=== PATIENT | male | born 1980 | race Caucasian/White ===

== ENCOUNTER 2022-09-12 10:04 | Outpatient (REF) | payer OTHER, SELFPAY ==
[2022-09-12 11:29] LABS: Appearance Urine Clear; Color Urine Dark Yellow; Glucose Urine UA Negative (Negative); Leukocyte Esterase Urine Negative (Negative); Nitrite Urine Negative (Negative); PH 5.5 (5.0-9.0); Specific Gravity - Urine >= 1.030 (1.005-1.025); Urine Blood Negative (Negative); Urine Ketones Trace mg/dL (Negative); Urine Protein Negative (Neg-Trace)
[2022-09-12 12:16] LABS: Alanine Aminotransferase 35 U/L (0-40); Albumin Level 4.4 g/dL (3.5-5.0); Alkaline Phosphatase 58 U/L (39-117); Anion Gap 12 (12-20); Aspartate Amino Transferase 21 U/L (5-37); Bilirubin Total 0.6 mg/dL (0.0-1.0); Blood Urea Nitrogen 25 mg/dL (9-16); Calcium 9.4 mg/dL (8.4-10.2); Carbon Dioxide 27 mmol/L (22-29); Chloride 111 mmol/L (96-108); Cholesterol 172 mg/dL; Estimated Glomerular Filt Rate > 60; Glucose Fasting 91 mg/dL (60-99); HDL Cholesterol 41 mg/dL; LDL Cholesterol Calculated 116 mg/dl; Potassium 4.2 mmol/L (3.3-5.1); Sodium 146 mmol/L (135-145); Total Protein 6.9 g/dL (6.5-8.0); Triglycerides 77 mg/dL
[2022-09-12 12:20] LABS: Creatinine Urine 392.76 mg/dL
[2022-09-12 12:26] LABS: TSH reflex Free T4 1.34 uIU/mL (0.32-4.0)
[2022-09-12 12:29] LABS: Prostate Specific Antigen Scr 1.25 ng/mL (<0.05-4.0)
== END 2022-09-12 10:05 | disposition home or self-care (01) ==
LOC: HO.HMGCLDS 10:04
PROVIDERS: PCP Family Medicine; Visit Provider Family Medicine
DX: Z00.00 Encounter for general adult medical examination without abnormal findings (principal); Z12.5 Encounter for screening for malignant neoplasm of prostate; I10 Essential (primary) hypertension
CPT/HCPCS: 36415; 80053; 80061; 81003; 82043; 84153; 84443

== ENCOUNTER 2022-10-13 10:06 | Outpatient (AMB) | payer OTHER, SELFPAY ==
--- NOTE | 2022-10-13 10:06 | A.OFFPC_ITS ---
Intake Visit Reasons: f/u CPE-labs Intake Note: f/u for labs from CPE Continuous [employer] Supervisor Required: No Allergies No Known Allergies Allergy (Verified 10/13/22 10:07) Tobacco use date assessed: 09/05/22 Dental Screening Dental Screen Date: 10/13/22 Did you have a dental visit in the last 12 months?: Yes Did you have a dental problem in the last 6 months where you did not have access to dental care?: No Was dental information given to patient?: Patient has dentist HPI f/u CPE-labs HPI Details 42 y/o male presents to f/u CPE-labs via telemedicine. Labs were drawn 09/12/22. Reviewed labs with pt. Mildly elevated sodium and BUN. He did not drink any water when he was fasting. Rest of his labs look fine. 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 Cognitive needs: No Hearing needs: No Vision needs: Yes Questionnaire Thrive Questionnaire I am a: Patient What is your living situation today?: I have a steady place to live Within the past 12 months, did the food you bought not last and you didn't have the money to get more?: Never true Within the past 12 months, did you worry whether your food would run out before you got money to buy more?: Never true Review of Systems Const Denies chills, Denies fatigue, Denies fever(s), Denies headache(s) and Denies weakness ENT Denies dizziness and Denies headache(s) Card Denies dyspnea Resp Denies cough, Denies dyspnea, Denies wheezing and Denies other (shortness of breath) Musc Denies numbness and Denies tingling Neuro Denies dizziness, Denies headache(s), Denies numbness, Denies tingling and Denies weakness Psych Denies anxiety and Denies depression Endo Denies fatigue Aller/Immun Denies wheezing Physical exam (Primary Care) Tobacco/Smoking Status: Tobacco use Status Tobacco use date assessed 09/05/22 10/13/22 10:08 Patient Tobacco Use Status Never used Tobacco 10/13/22 10:08 e-Cigarette/Vaping Use Never Used 10/13/22 10:08 Telehealth Telehealth Location of provider rendering services: practice address Location of patient: address on file Patient Identification confirmed using: Name, : Yes Telehealth method: voice only Patient verbally consented to treatment: Yes Patient verbally consented to billing insurance company: Yes Patient informed of any privacy concerns related to visit: Yes Minutes spent on Phone/Video with Pt.: 6 Assessment and Plan Assessment & Plan (1) Screening for prostate cancer: Code(s): Z12.5 - Encounter for screening for malignant neoplasm of prostate Plan: PSA was within normal limits Patient has no urinary stream problems and no dysuria. No gross hematuria and no microscopic hematuria on urine studies Will continue to monitor (2) Serum sodium elevated: Code(s): E87.0 - Hyperosmolality and hypernatremia Plan: Mildly elevated sodium level and concentrated urine. Patient did not drink any water during his fast for lab work. Likely mild dehydration due to not drinking water during his fast. Orders: Orders Comprehensive [place]. Panel Fast 11 Months Z00.00 - Encounter for general adult medical examination without abnormal findings Lipid Panel 11 Months Z00.00 - Encounter for general adult medical examination without abnormal findings Prostate Specific Antigen Scr 11 Months Z12.5 - Encounter for screening for mal ignant neoplasm of prostate TSH reflex Free T4 11 Months Z00.00 - Encounter for general adult medical examination without abnormal findings Microalbumin, Random (w Creat) 11 Months I10 - Essential (primary) hypertension UA and rflx microscopic 11 Months Z00.00 - Encounter for general adult medical examination without abnormal findings Coding Level of Care Code Tele Est Pt Level 2 (67096) Diagnoses Screening for prostate cancer Z12.5 Serum sodium elevated E87.0
== END 2022-10-13 10:55 | disposition home or self-care (01) ==
LOC: HO.HMGFM 10:06
PROVIDERS: PCP Family Medicine; Visit Provider Family Medicine
DX: E87.0 Hyperosmolality and hypernatremia (principal); Z12.5 Encounter for screening for malignant neoplasm of prostate
CPT/HCPCS: 99212

== ENCOUNTER 2023-09-08 13:31 | Outpatient (AMB) | payer OTHER, SELFPAY ==
--- NOTE | 2023-09-08 13:38 | A.OFFPC_ITS ---
Vital Signs 09/08/23 13:42 Height 5 ft 9 in Weight 238 lb 4 oz BMI 35.2 BP 122/80 Blood Pressure Location Rt brachial Position Sitting Pulse 59 Pulse Source Pulse Oximeter Temp 98.1 F Temp Source Oral Pulse Oximetry (%) 98 Oxygen Delivery Method Room Air Intake Visit Reasons: Sharp pain in heel Intake Note: Sharp pain in left heel. Allergies No Known Allergies Allergy (Verified 09/08/23 13:40) Medication List - Last Reconciled 09/08/23 by Pratibha Serrano MD diclofenac sodium 1% (Voltaren Arthritis Pain) 4 grams topical QID prednisone 40 mg (2 x 20 mg) PO DAILY Tobacco use date assessed: 09/05/22 Dental Screening Dental Screen Date: 10/13/22 HPI HPI Comments History of Present Illness Details 43 year old male with a past medical his tory of plantar fasciitis presenting for right heel pain Reports a 1-2 month history of right heel pain. Location is under calcaneus. Originally thought he was developing plantar fasciitis again. Bought inserts and new shoes. Pain subsided in mid foot but persisted in the heel. No redness or warmth. Increase pain with weight bearing. Hurts in the morning too when he has been off his feet for some time. No injury. History of right plantar fasciitis in 2013-saw podiatry at that time. Called that critical care physician but no appt til Nov. He is using naproxen with minimal relief. Has used icy hot. But not lasting relief ROS see HPI PHYSICAL EXAM: GENERAL: Alert and oriented x 3. NAD EYES: EOMI. Anicteric. HENT: Moist mucous membranes. No scleral icterus. No cervical lymphadenopathy. LUNGS: Clear to auscultation bilaterally. CARDIOVASCULAR: Regular rate and rhythm. No murmur. No JVD. ABDOMEN: Soft, non-tender +bs EXTREMITIES: No edema. Non-tender. SKIN: No rashes or lesions. Warm. NEUROLOGIC: No focal neurological deficits. CN II-XII grossly intact PSYCHIATRIC: Cooperative. 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 Cognitive needs: No Hearing needs: No Vision needs: Yes Physical exam (Primary Care) Vital Signs: Last Vital Signs Temp 98.1 F 09/08/23 13:42 Pulse 59 09/08/23 13:42 BP 122/80 09/08/23 13:42 Pulse Ox 98 09/08/23 13:42 Oxygen Delivery Method Room Air 09/08/23 13:42 BMI result Body Mass Index 35.2 Tobacco/Smoking Status: Tobacco use Status Tobacco use date assessed 09/05/22 09/08/23 13:40 Patient Tobacco Use Status Never used Tobacco 09/08/23 13:40 e-Cigarette/Vaping Use Never Used 09/08/23 13:40 Assessment and Plan Assessment & Plan (1) Pain of right heel: Code(s): M79.671 - Pain in right foot Plan: Discussed possibility of calcaneal spur, arthritis etc. Will obtain xray Prednisone x 5 days ordered. May use tylenol plus either advil/ibuprofen/naproxen Recommend application of voltaren as directed Referral to podiatry placed Orders: Orders XR foot RT 2V Today M79.671 - Pain in right foot Referrals Orthopedics Referral M79.671 - Pain in right foot Medications: New diclofenac sodium 1% (Voltaren Arthritis Pain) apply to single knee, ankle, foot; for foot includes sole/toes/top of foot 4 grams topical QID 100 grams 3RF prednisone 40 mg (2 x 20 mg) PO DAILY 10 tabs 0RF Coding Level of Care Code Est Pt Level 4 (25712) Diagnoses Pain of right heel M79.671
[2023-09-08 13:42] VITALS: BP 122/80; PULSE 59; TEMP 36.7; O2SAT 98; BMI 35.2
== END 2023-09-08 15:17 | disposition home or self-care (01) ==
PROVIDERS: PCP Family Medicine; Visit Provider Internal Medicine
DX: M79.671 Pain in right foot (principal)
CPT/HCPCS: 99214

== ENCOUNTER 2023-09-12 08:03 | Outpatient (REF) | payer OTHER, SELFPAY | END 2023-09-12 08:04 | disposition home or self-care (01) | LOC: HO.XRAY 08:03 | PROVIDERS: PCP Family Medicine; Visit Provider Internal Medicine | DX: Z13.89 Encounter for screening for other disorder (principal) ==

== ENCOUNTER 2023-09-14 09:01 | Outpatient (REF) | payer OTHER, SELFPAY ==
--- NOTE | ~2023-09-14 | XR_ITS ---
EXAMINATION: XR FOOT, LEFT CLINICAL INFORMATION: Pain in the left foot COMPARISON: None available. TECHNIQUE: AP, lateral, and oblique views of the left foot. FINDINGS: The bones and soft tissues are normal. No fracture. Alignment is anatomic. Joint spaces are maintained. Plantar enthesophyte. XR/XR foot LT min 3V IMPRESSION: Plantar enthesophyte.
--- NOTE | ~2023-09-14 | XR_ITS ---
EXAMINATION: XR FOOT, RIGHT CLINICAL INFORMATION: Pain in the right foot COMPARISON: None available. TECHNIQUE: AP, lateral, and oblique views of the right foot. FINDINGS: The bones and soft tissues are normal. No fracture. Alignment is anatomic. Joint spaces are maintained. Calcaneal enthesopathy. XR/XR foot RT min 3V IMPRESSION: Calcaneal enthesopathy.
== END 2023-09-14 09:02 | disposition home or self-care (01) ==
LOC: HO.XRAY 09:01
PROVIDERS: PCP Family Medicine; Visit Provider Internal Medicine
DX: M79.671 Pain in right foot (principal); M79.672 Pain in left foot
CPT/HCPCS: 73630

== ENCOUNTER 2023-10-23 08:53 | Outpatient (AMB) | payer BC, SELFPAY ==
--- NOTE | 2023-10-23 09:16 | MHC.PC.OV ---
Vital Signs 10/23/23 09:27 10/23/23 09:32 Height 5 ft 8.27 in Weight 242 lb 8 oz BMI 36.6 BP 110/90 H 106/60 Blood Pressure Location Rt brachial Rt brachial Position Sitting Sitting Respiration 18 Pulse 64 Pulse Source Pulse Oximeter Temp 98 F Temp Source Tympanic Pulse Oximetry (%) 98 Oxygen Delivery Method Room Air Intake Visit Reasons: CPE Intake Note: CPE ,left heal pain Allergies No Known Allergies Allergy (Verified 10/23/23 09:21) Medication List - Last Reconciled 10/23/23 by Teo Gallardo MD diclofenac sodium 1% (Voltaren Arthritis Pain) 4 grams topical QID Tobacco use date assessed: 10/23/23 Dental Screening Dental Screen Date: 10/23/23 Did you have a dental visit in the last 12 months?: No Did you have a dental problem in the last 6 months where you did not have access to dental care?: No Was dental information given to patient?: Patient declined HPI CPE HPI Details 43 y/o male presents for a CPE with f/u labs and health maintenance. No recent labs to review. Has complaints of L heel pain. Hx of plantar fasciitis. HPI Comments History of Present Illness Details Documentation assistance for Teo Gallardo MD, was provided by Wellington Cunningham, Health [employer] Teacher on 10/23/2023 at 10:20 AM SACHA. Laith, Dr. Gallardo, have read, observed, and verified documentation. 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 1. Little interest or pleasure in doing things: not at all 2. Feeling down, depressed, or hopeless: not at all 3. Trouble falling or staying asleep, or sleeping too much: not at all 4. Feeling tired or having little energy: not at all 5. Poor appetite or overeating: not at all 6. Feeling bad about yourself - or that you are a failure or have let yourself or your family down: not at all 7. Trouble concentrating on things, such as reading the newspaper or watching television: not at all 8. Moving or speaking so slowly that other people could have noticed. Or the opposite - being so fidgety or restless that you have been moving around a lot more than usual: not at all 9. Thoughts that you would be better off or of hurting yourself in some way: not at all Total score: 0 Depression Screening Interpretation: Negative Depression Screening Done: Yes 33425 - PHQ-9 Billing: Yes Source: Developed by Drs. Thaddeus Pool, Berkley Quinn, Asael Leal and colleagues, with an educational wellington from [employer]. Thrive Questionnaire Date Thrive assessed: 10/23/23 I am a: Patient What is your living situation today?: I have a steady place to live Within the past 12 months, did the food you bought not last and you didn't have the money to get more?: Never true Within the past 12 months, did you worry whether your food would run out before you got money to buy more?: Never true Do you have trouble paying for medicines?: No Do you have trouble getting transportation to medical appointments?: No Do you have trouble paying your heating and electricity bill?: No Do you have trouble taking care of your child, family member or friend?: No Do you have trouble with day-to-day activities such as bathing, preparing meals, shopping, managing finances, etc.?: No Are you currently unemployed and looking for a job?: No Are you interested in more education?: No Please select the resources that you would like help with: None Currently or been in a relationship where the following occur: No concerns reported THRIVE Score: 0 AUDIT C Alcohol Use Questionnaire (AUDIT-C) 1. How often do you have a drink containing alcohol?: 2-4 times a month 2. How many drinks containing alcohol do you have on a typical day when you are drinking?: 1 or 2 3. How often do you have six or more drinks on one occasion?: Never Total Score: 2 Score Reviewed/Action Taken: Yes MACK-7 AMB Questionnaire MACK-7 Date MACK - 7 assessed: 10/23/23 Feeling nervous, anxious, or on edge: 0 = Not at all Not being able to stop or control worryin = Not at all Worrying too much about different things: 0 = Not at all Trouble relaxin = Not at all Being so restless that it is hard to sit still: 0 = Not at all Becoming easily annoyed or irritable: 0 = Not at all Feeling afraid as if something awful might happen: 0 = Not at all Total MACK-7 score (0-4 normal; 5-9 mild; 10-14 moderate; 15-21 severe): 0 Source: Developed by Drs. Thaddeus Pool, Berkley Quinn, Asael Leal and colleagues, with an educational wellington from [employer]. MACK-7 Assessment Billing MACK-7 Assessment Tool: MACK-7 Assessment 67167 Review of Systems Const Denies chills, Denies fatigue, Denies fever(s), Denies headache(s) and Denies weakness Eyes Denies change in vision ENT Denies dizziness, Denies headache(s), Denies hearing loss, Denies nasal congestion, Denies sinus pain, Denies sinus pressure and Denies sore throat Card Denies chest pain, Denies lightheadedness, Denies dyspnea and Denies other (palpitations) Resp Denies cough, Denies dyspnea and Denies wheezing GI Denies abdominal pain, Denies melena, Denies hematochezia, Denies change in bowel habits, Denies dyspepsia and Denies nausea Denies hematuria and Denies dysuria Musc Denies abnormal gait, Denies myalgias, Denies arthralgias, Denies numbness and Denies tingling Skin/Breast Denies rash, Denies unusual bruising and Denies wounds Neuro Denies abnormal gait, Denies dizziness, Denies headache(s), Denies memory loss, Denies numbness, Denies Sensory deficit (Neuro), Denies tingling and Denies weakness Psych Denies anxiety, Denies depression and Denies memory loss Endo Denies cold intolerance, Denies fatigue, Denies heat intolerance, Denies polydipsia and Denies polyuria Cecil/Lymph Denies easy bleeding and Denies easy bruising Aller/Immun Denies wheezing Physical exam (Primary Care) Vital Signs: Last Vital Signs Temp 98 F 10/23/23 09:27 Pulse 64 10/23/23 09:27 Resp 18 10/23/23 09:27 BP 106/60 10/23/23 09:32 Pulse Ox 98 10/23/23 09:27 Oxygen Delivery Method Room Air 10/23/23 09:27 BMI result Body Mass Index 36.6 Tobacco/Smoking Status: Tobacco use Status Tobacco use date assessed 10/23/23 10/23/23 09:22 Patient Tobacco Use Status Never used Tobacco 10/23/23 09:22 e-Cigarette/Vaping Use Never Used 10/23/23 09:22 PHQ-9: PHQ-9 Score PHQ-9: Total score 0 10/23/23 09:47 Depression Screening Interpretation: Negative Thrive Assessment: Date of Thrive Assessment Date Thrive assessed 10/23/23 10/23/23 09:30 Currently or been in a relationship where the following occur: No concerns reported Const General: no acute distress, well developed, alert and awake Nutritional Appearance: well nourished Orientation/consciousness: patient oriented x3 HENMT Head: Yes normocephalic and Yes atraumatic Ears: hearing grossly normal bilaterally and TM's normal bilaterally General nose exam: Normal external nose present and Normal nares present Mouth: Normal oral and palatal mucosa present and moist mucous membranes Teeth and gingiva: dentition normal Throat: Yes posterior oropharynx normal Eyes General: appearance normal, both eyes and all related structures Pupils: Equal, round and reactive pupils present and Pupil accommodation reflex normal EOM: EOMs intact bilaterally Neck Neck: Yes normal visual inspection, Yes no lymphadenopathy and Yes trachea midline Thyroid: Thyroid normal Carotids: no bruits Lymphatic: no lymphadenopathy noted Chest Chest palpation & inspection: normal inspection of the chest Resp Effort & Inspection: normal respiratory effort Auscultation: clear to auscultation bilaterally Cardio Rate: regular rate Rhythm: regular rhythm Heart sounds: S1 normal heart sound present, S2 normal heart sound present, no gallops, no murmurs and no rubs Bruits: no abdominal aortic bruits and no carotid bruits GI Palpation (GI): No Abdominal aortic bruit present, Soft to palpation, nontender, No hepatosplenomegaly present and No Rebound tenderness present Auscultation: normal bowel sounds General: Yes no CVA tenderness Back/Spine/Pelvis Back: no CVA tenderness Cervical Spine: cervical ROM normal and No Cervical spine tenderness Thoracic/Lumbar Spine: thoraco-lumbar ROM normal, No pain with thoraco-lumbar ROM, No thoracic spinal tenderness and No lumbar spinal tenderness Skin Lesions: no lesions Rashes: no rashes Trauma: no lacerations or abrasions Wounds: no wounds Nails: normal Neuro General: patient oriented x3 Cranial nerves: Yes Equal, round and reactive pupils present Cognition (Neuro): normal cognition Gait exam (Neuro): Normal gait present Motor exam (neuro): 5/5 motor strength present throughout Sensory Exam: No Sensory deficit (Neuro) Deep tendon reflexes (DTR's): Right patellar reflex intensity grade: 2+ and Left patellar reflex intensity grade: 2+ Extrem General: Yes normal to inspection and No edema Psych Appearance: grossly normal Affect: normal affect Attitude: cooperative Thought process: Normal thought process present Assessment and Plan Assessment & Plan (1) Adult general medical examination: Code(s): Z00.00 - Encounter for general adult medical examination without abnormal findings Plan: 43-year-old?male?presents?for?complete?physical?exam Encouraged?healthy?diet?with?active?lifestyle?and?plenty?of?exercise (2) Screening for prostate cancer: Code(s): Z12.5 - Encounter for screening for malignant neoplasm of prostate Plan: Check?PSA (3) Screening for colon cancer: Code(s): Z12.11 - Encounter for screening for malignant neoplasm of colon Plan: Due?for?1st?screening?colonoscopy Referred (4) Pain of left heel: Code(s): M79.672 - Pain in left foot Plan: No?stress?fractures?seen?on?x-ray.??Just?encephalopathy and?likely?has plantar?tendinitis/fasciitis. Demonstrated?stretching?exercises Will?also?use?ice/heat Will?give?him?meloxicam Can?use?heel?cup?or?heel?cushion Has?appointment?with?Podiatry?and?will?follow-up?there Orders: Referrals Gastroenterology Referral Z12.11 - Encounter for screening for malignant neoplasm of colon Medications: New meloxicam 15 mg PO DAILY 30 days 30 tabs 2RF Coding Level of Care Code Est Pt Level 3 (68140) Est Pt Prev Care 40-64y(83031) Diagnoses Adult general medical examination Z00.00 Screening for prostate cancer Z12.5 Screening for colon cancer Z12.11 Pain of left heel M79.672 Additional Codes MACK-7 Assessment Billing - MACK-7 Assessment Tool: MACK-7 Assessment 33981 ([id number])
[2023-10-23 09:27] VITALS: BP 110/90; PULSE 64; RESP 18; TEMP 36.6; O2SAT 98; BMI 36.6
[2023-10-23 09:32] VITALS: BP 106/60
== END 2023-10-23 10:23 | disposition home or self-care (01) ==
PROVIDERS: PCP Family Medicine; Visit Provider Family Medicine
DX: Z00.00 Encounter for general adult medical examination without abnormal findings (principal); M79.672 Pain in left foot; Z12.5 Encounter for screening for malignant neoplasm of prostate; Z12.11 Encounter for screening for malignant neoplasm of colon
CPT/HCPCS: 99213; 99396

== ENCOUNTER 2023-10-23 10:47 | Outpatient (REF) | payer BC, SELFPAY ==
[2023-10-23 14:17] LABS: Appearance Urine Clear; Color Urine Yellow; Glucose Urine UA Negative (Negative); Leukocyte Esterase Urine Negative (Negative); Nitrite Urine Negative (Negative); PH 6.5 (5.0-9.0); Specific Gravity - Urine 1.015 (1.005-1.025); Urine Blood Negative (Negative); Urine Ketones Negative (Negative); Urine Protein Negative (Neg-Trace)
[2023-10-23 14:39] LABS: Alanine Aminotransferase 32 U/L (0-40); Albumin Level 4.3 g/dL (3.5-5.0); Alkaline Phosphatase 60 U/L (39-117); Anion Gap 11 (12-20); Aspartate Amino Transferase 20 U/L (5-37); Bilirubin Total 0.5 mg/dL (0.0-1.0); Blood Urea Nitrogen 22 mg/dL (9-16); Calcium 9.5 mg/dL (8.4-10.2); Carbon Dioxide 28 mmol/L (22-29); Chloride 105 mmol/L (96-108); Cholesterol 192 mg/dL (<200); Estimated Glomerular Filt Rate > 60; Glucose Fasting 85 mg/dL (60-99); HDL Cholesterol 43 mg/dL (>40); LDL Cholesterol Calculated 128 mg/dL (<100); Potassium 4.4 mmol/L (3.3-5.1); Sodium 140 mmol/L (135-145); Total Protein 6.8 g/dL (6.5-8.0); Triglycerides 105 mg/dL (<150)
[2023-10-23 14:50] LABS: Microalbumin Urine < 5.0 mg/L
[2023-10-23 14:51] LABS: Prostate Specific Antigen Scr 1.37 ng/mL (<0.05-4.0)
[2023-10-23 14:53] LABS: TSH reflex Free T4 1.57 uIU/mL (0.32-4.0)
== END 2023-10-23 10:48 | disposition home or self-care (01) ==
LOC: HO.WFDLDS 10:47
PROVIDERS: Visit Provider Family Medicine
DX: Z00.00 Encounter for general adult medical examination without abnormal findings (principal); Z12.5 Encounter for screening for malignant neoplasm of prostate; I10 Essential (primary) hypertension
CPT/HCPCS: 36415; 80053; 80061; 81003; 82570; 84153; 84443

== ENCOUNTER 2023-11-30 15:28 | Outpatient (AMB) | payer BC, SELFPAY ==
--- NOTE | 2023-11-30 15:25 | A.OFFPC_ITS ---
Intake Visit Reasons: f/u CPE-labs via telemedicine Intake Note: Lab work follow up Allergies No Known Allergies Allergy (Verified 11/30/23 15:26) Tobacco use date assessed: 10/23/23 Dental Screening Dental Screen Date: 10/23/23 HPI f/u CPE-labs via telemedicine HPI Details 43 y/o male presents to review CPE-labs via telemedicine. Labs drawn 10/23/23. Reviewed labs with pt. Triglycerides 105. TC 192. LDL 128. HDL 43. PSA 1.37. HPI Comments History of Present Illness Details Documentation assistance for Teo Gallardo MD, was provided by Wellington Cunningham, Reinforced Ironworker on 11/30/2023 at 5:45 PM EST. I, Dr. Gallardo, have read, observed, and verified documentation. 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 Thaddeus Pool, Berkley Quinn, Asael Leal and colleagues, with an educational wellington from [employer]. Review of Systems Const Denies chills, Denies fatigue, Denies fever(s), Denies headache(s) and Denies weakness ENT Denies dizziness and Denies headache(s) Card Denies dyspnea Resp Denies cough, Denies dyspnea, Denies wheezing and Denies other (shortness of breath) Musc Denies numbness and Denies tingling Neuro Denies dizziness, Denies headache(s), Denies numbness, Denies tingling and Denies weakness Psych Denies anxiety and Denies depression Endo Denies fatigue Aller/Immun Denies wheezing Physical exam (Primary Care) Tobacco/Smoking Status: Tobacco use Status Tobacco use date assessed 10/23/23 11/30/23 15:28 Patient Tobacco Use Status Never used Tobacco 11/30/23 15:28 e-Cigarette/Vaping Use Never Used 11/30/23 15:28 Thrive Assessment: Date of Thrive Assessment Date Thrive assessed 10/23/23 11/30/23 15:28 Telehealth Telehealth Telehealth Platform: Telephone Location of provider rendering services: practice address Location of patient: address on file Patient Identification confirmed using: Name, : Yes Telehealth method: voice only Patient verbally consented to treatment: Yes Patient verbally consented to billing insurance company: Yes Patient informed of any privacy concerns related to visit: Yes Minutes spent on Phone/Video with Pt.: 8 Assessment and Plan Assessment & Plan (1) Elevated LDL cholesterol level: Code(s): E78.00 - Pure hypercholesterolemia, unspecified Plan: LDL?cholesterol?is?above?goal?of?less?than?100.??Mild?increase?from?last?year?as ?well. Patient?is?obese Encouraged?diet?low?in?saturated?fats?and?cholesterol,?exercise?and?weight?loss Will?repeat?lipids?in?about?4?months We?discussed?that?if?lipids?continue?to?climb?or?not?significantly?improved?we?m ay?want?to?discuss?medication?but?if?he?is?showing?improvements?we?will?continue ?to?monitor. (2) Screening for prostate cancer: Code(s): Z12.5 - Encounter for screening for malignant neoplasm of prostate Plan: PSA?is?within?normal?range Continue?annual?screening (3) Screening for colon cancer: Code(s): Z12.11 - Encounter for screening for malignant neoplasm of colon Plan: Patient?has?appointment?with?Gastroenterology (4) Pain of right heel: Code(s): M79.671 - Pain in right foot Plan: Plantar?fasciitis?and?patient?saw?Podiatry Continue?exercises?and?follow-up?with?podiatry?as?recommended Orders: Orders Lipid Panel Today E78.00 - Pure hypercholesterolemia, unspecified, Z00.00 - Encounter for general adult medical examination without abnormal findings Comprehensive [place]. Panel Fast Today E78.00 - Pure hypercholesterolemia, unspecified, Z00.00 - Encounter for general adult medical examination without abnormal findings Coding Level of Care Code Tele Est Pt Level 2 (11667) Diagnoses Elevated LDL cholesterol level E78.00 Screening for prostate cancer Z12.5 Screening for colon cancer Z12.11 Pain of right heel M79.671
== END 2023-11-30 17:05 ==
LOC: HO.HMGFM 15:28
PROVIDERS: PCP Family Medicine; Visit Provider Family Medicine
DX: E78.00 Pure hypercholesterolemia, unspecified (principal); M79.671 Pain in right foot
CPT/HCPCS: 99441

== ENCOUNTER 2024-03-08 13:19 | Outpatient (AMB) | payer BC, SELFPAY ==
--- OUTSIDE RECORDS SUMMARY | 2024-03-08 13:21 | XMS_ITS ---
Author Organization [facility] Address [address] [place] [address] Care Team Providers Care Resistance Welder Name Role Phone Teo Gallardo MD Primary Care Provider Eulogio Hussein Unavailable [phone] REASON FOR VISIT cx 01/09/24 Encounters Encounter Location Date Provider Diagnosis [facility] [address] [place] [address] 12/26/2023 Eulogio Ross Plan Of Treatment No Information Progress Notes * Parmjit KIRK MDOB:1980 (43 yo M)Acc No.[id number]:12/26/2023 Patient:?Parmjit Kirk :1980???Age:43 Y???Sex:Male Address:[address] [place] [address] , [place], [address] * true * Date:? Generated for Jimii simona/Roman/eTransmitting on:?03/08/2024 01:21 PM EST
--- OUTSIDE RECORDS SUMMARY | 2024-03-08 13:21 | XMS_ITS ---
Author Organization [facility] Address [address] [place] [address] Care Team Providers Care Commercial Drone Pilot Name Role Phone Paulina WALDEN, Teo Primary Care Provider Eulogio Hussein Unavailable [phone] Encounters Encounter Location Date Provider Diagnosis [address] [address] 01/09/2024 Eulogio Ross Plan Of Treatment No Information Progress Notes * Parmjit KIRKPATRICK MDOB:1980 (43 yo M)Acc No.[id number]:01/09/2024 Progress Notes Patient:?Klaus KIRKPATRICKrey Rosy Provider:?Eulogio Rsos DPM :1980???Age:43 Y???Sex:Male Nsaeem e:01/09/2024 Address:[address] [place], [place] [phone] Pcp:Teo Gallardo MD Subjective: * Chief Complaints: * ??? * Medical History:? Objective: * Vitals:? Assessment: Plan: * Treatment: * Images: * The named appointment provid er may or may not be the originator of this progress note, and it is not deemed complete until electronically signed by the appointment provider. Sign off status: Pending * Provider:?Eulogio Ross DPM Date:?2023 Generated for Printi ng/Farenettag/eTransmitting on:?03/08/2024 01:21 PM EST
--- OUTSIDE RECORDS SUMMARY | 2024-03-08 13:21 | XMS_ITS | Patient Health Record ---
[facility] [place] Address [address] [place] [address] Care Team Providers Care Master Machinist Name Role Phone Teo Gallardo MD Primary Care Provider Eulogio Hussein Unavailable [phone] Allergies No Known Allergies Reason For Referral Diagnosis 1 Plantar fascial fibr omatosis (M72.2) Diagnosis 2 Myositis (729.1) Diagnosis 3 Bursitis (727.3) Diagnosis 4 Pain in Limb (729.5) Diagnosis 5 Calcaneal spur (726. 73) Diagnosis 6 Flat Foot, Congenita l (754.61) Referring Provider First Name Teo Referring Provider Last Name Paulina Referring Provider Speciality Internal M edicine [facility] Referred Provider Enrique Frausto Referred Address [address] [facility],[place], [place],[address], Referred Provider Specialty Podiatry Referral Priority Routine Diagnosis 1 Interstitial myositi s of left foot (M60.172) Diagnosis 2 Bursitis (727.3) Diagnosis 3 Flat Foot, Congenita l (754.61) Diagnosis 4 Myositis (729.1) Diagnosis 5 Pain in Limb (729.5) Diagnosis 6 Plantar fascial fibr omatosis (M72.2) Diagnosis 7 Calcaneal spur (726. 73) Diagnosis 8 Pain in left foot (M 79.672) Referring Provider First Name Teo Referring Provider Last Name Paulina Referring Provider Speciality Internal edicine [facility] Referred Provider Eulogio Ross Referred Address [address] [facility],[place],[address], Referred Provider Specialty Podiatry Referral Priority Routine Medications Medication SIG (Take, Route, Frequency, Duration) Notes Start Date End Date Status Diclofenac Sodium 1 % as directed Externally Active predniSONE 20 MG 1 tablet Orally Once a day for 30 day(s) 10/13/2023 Not-Taking Arthritis Pain Relief 10/13/2023 Active Social History Tobacco Use: Social History Observation Description Date Details (start date - stop date) Never Smoker NA - NA Tobacco Use/Smoking Question Answer Notes Are you a: nonsmoker Additional Findings: Tobacco Non-User Current no n-smoker Alcohol Screen Question Answer Notes Did you have a drink containing alcohol in the p ast year? Yes Points 0 Interpretation Negative Tobacco use other than smoking: Question Answer Notes Are you an other tobacco user? No Problems Problem Type SNOMED Code ICD Code Onset Dates Problem Status W/U Status Risk Notes Problem Interstitial myositis (29673793) Interstitial myositis of left foot (M60.172) Active confirmed Vital Signs Height 5 ft 9 in in 11/28/2023 Weight 240 lbs 11/28/2023 BMI 35.44 kg/m2 11/28/2023 Encounters Encounter Location Date Provider Diagnosis [facility] [address] 11/28/2023 Eulogio Cody Pain in left foot M79.672 ; Plantar fasciitis of left foot M72.2 ; Calcaneal spur, left foot M77.32 ; Interstitial myositis of left foot M60.172 and Bursitis of left foot M77.[address] [facility] [address] 11/28/2023 Eulogio Ross [facility] [address] 12/26/2023 Eulogio Ross Assessments Encounter Date Diagnosis (ICD Code) Assessment Notes Treatment Notes Treatment Clinical Notes Section Notes 11/28/2023 Pain in left foot (ICD-10 - M79.672) 11/28/2023 Plantar fasciitis of left foot (ICD-10 - M72.2) Patient Educated with: HEEL CORD STRETCHES.pdf (HEEL CORD STRETCHES.pdf) Patient Educated with: RICE THERAPY.pdf (RICE THERAPY.pdf) 11/28/2023 Calcaneal spur, left foot (ICD-10 - M77.32) 11/28/2023 Interstitial myositis of left foot (ICD-10 - M60.172) 11/28/2023 Bursitis of left foot (ICD-10 - M77.52) Plan Of Treatment Pending Test Test Name Order Date X ray : Foot, left 3V 11/28/2023 X ray : Foot, right 3V 02/27/2013 Insurance Providers Payer Name Payer Address Payer Phone Subscriber Number Group Number Insured Name Patient Relationship to Insured Coverage Start Date Coverage End Date [facility] [address] [place] [address] [id number] Parmjit Kirk Self - patient is the insured Medical (General) History Medical History History ICD Code covid-19 Chicken pox Surgical History Surgery Date(Month/Year)
--- OUTSIDE RECORDS SUMMARY | 2024-03-08 13:21 | XMS_ITS ---
Author Organization [facility] Address [address] [place] [address] Care Team Providers Care Waxer Operator Name Role Phone Teo Gallardo MD Primary Care Provider Eulogio Hussein Unavailable [phone] REASON FOR VISIT BUY Comfort Plus w/ met pad E- M 12-27.5 Encounters Encounter Location Date Provider Diagnosis [address] [address] 11/28/2023 Eulogio Ross Plan Of Treatment No Information Progress Notes * Parmjit KIRKPATRICK MDOB:1980 (43 yo M)Acc No.[id number]:11/28/2023 Patient:?Parmjit Kirkpatrick :1980???Age:43 Y???Sex:Male Address:[address] [place] [address] , [place], [address] * true * Date:? Generated for Jimii simona/Roman/eTransmitting on:?03/08/2024 01:21 PM EST
--- NOTE | 2024-03-08 13:23 | MHC.OFFVIS ---
Vital Signs 03/08/24 13:26 Height 5 ft 9 in Weight 253 lb 8.505 oz BMI 37.4 BP 134/71 Blood Pressure Location Lt brachial Position Sitting Pulse 68 Intake Visit Reasons: [place] consult. Intake Note: Patient in office today as a new patient for colonoscopy screening. CC: Patient denies having any GI symptoms or concerns today. Ware Carrier Required: No Accompanied by: Self / Same As Patient Allergies No Known Allergies Allergy (Verified 03/08/24 13:30) HPI HPI [place] consult.: Details: 43-year-old male here for preprocedural meeting to discuss a screening colonoscopy. He is referred by Teo Gallardo. PMX High cholesterol * SURGICAL HISTORY Pt denies * ALLERGIES: NKDA * BATS LABS: Laboratory Tests 10/23/23 10:48 Estimated GFR > 60 Total Bilirubin 0.5 AST 20 ALT 32 Alkaline Phosphatase 60 TSH 1.57 TODAY'S VISIT This is his first colonoscopy. No bowel or upper GI problems He denies any cardiac or respiratory problems He is naive to anesthesia and sedation NO ID problems There is no FHX of crc or polyps. [facility] Medical History (Updated 03/08/24 @ 13:36 by CARRIE Nelson) Adult general medical examination Screening for prostate cancer Screening for colon cancer Back pain Social History Household Members: None Both parents involved: No Caregiver staying overnight: No Housing: Condominium Are you a primary client care coordinator to a significant other at home: No Do you presently have visiting nurse or other home services: No 75 years or older and lives alone: No Alcohol intake: current Alcohol intake frequency: holidays/special occasions only Patient Tobacco Use Status: Never used Tobacco e-Cigarette/Vaping Use: Never Used service: No Current occupational status: employed 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 Cognitive needs: No Hearing needs: No Vision needs: Yes Review of Systems Const Denies fatigue, Denies fever(s), Denies night sweats, Denies poor appetite and Denies weight loss Eyes Details: glasses Reports requires corrective lenses ENT Reports Normal hearing present, Denies dental pain, Denies dysphagia, Denies hearing loss, Denies mouth pain, Denies odynophagia, Denies throat swelling, Denies tongue swelling and Reports other (Dentition adequate) Card Reports no additional complaints Resp Reports no additional complaints GI Details: Denies abdominal pain, Denies melena, Denies bloating, Denies hematochezia, Denies constipation, Denies GI cramping, Denies dysphagia, Denies excessive flatus, Denies early satiety, Denies heartburn, Denies diarrhea, Denies nausea, Denies odynophagia, Denies vomiting and Denies hematemesis Skin/Breast Denies pruritus, Denies lesions, Denies rash and Denies jaundice Neuro Reports Normal hearing present and Denies Abnormal speech present Endo Denies fatigue Aller/Immun Denies throat swelling and Denies tongue swelling Physical Exam Vital Signs: Last Vital Signs Pulse 68 03/08/24 13:26 BP 134/71 03/08/24 13:26 BMI result Body Mass Index 37.4 Const General: cooperative, no acute distress, well developed and well groomed Nutritional Appearance: well nourished and obese Orientation/consciousness: oriented to person, oriented to place and oriented to time Limitations: No language barrier HEENT Head: Yes normocephalic and Yes atraumatic Eyes General: appearance normal, both eyes and all related structures Pupils: Equal, round and reactive pupils present Neck Neck: Yes normal visual inspection and Yes no lymphadenopathy Thyroid: Thyroid normal Resp Effort & Inspection: normal respiratory effort and able to speak in complete sentences Auscultation: clear to auscultation bilaterally Cardio Rate: regular rate Rhythm: regular rhythm Heart sounds: Normal, physiologic split S2 sound present Peripheral pulses: radial pulses present and posterior tibial pulses present GI Inspection: No distended, No Abdominal panniculus present and Yes obesity Palpation (GI): Soft to palpation, nontender, no guarding, not rigid and No hepatosplenomegaly present Percussion: Yes normal to percussion Auscultation: normal bowel sounds Rectal Exam - Male: Yes deferred Skin General skin exam: no rashes or lesions noted, turgor normal, skin not dry, no jaundice, No spider nevi and no striae Rashes: no rashes Nails: normal Neuro General: oriented to person, oriented to place and oriented to time Cranial nerves: Yes Equal, round and reactive pupils present and Yes Normal hearing present Speech: No Abnormal speech present Extrem General: Yes normal to inspection, No clubbing, No cyanosis and No edema Psych Appearance: grossly normal and well kempt Mental Status: mental status grossly normal Speech and movement: Normal speech and movement present Affect: normal affect Attitude: cooperative Thought process: Normal thought process present and not confabulating Thought content: Normal thought content present Insight: Good insight present (Psych) Judgement: Good judgement present (Psych) Assessment & Plan Assessment & Plan (1) Pre-op examination: Code(s): Z01.818 - Encounter for other preprocedural examination Category: Medical Plan This is his first colonoscopy. No bowel or upper GI problems He denies any cardiac or respiratory problems He is naive to anesthesia and sedation NO ID problems There is no FHX of crc or polyps. Orders: Orders Colonoscopy - GI Use Only Today Z01.818 - Encounter for other preprocedural examination Medications: New sod sulf-pot chloride-mag sulf 1.479-0.188- 0.225 gram (Sutab) PO PER PKG DIR for colonoscopy prep 24 tabs 0RF Coding Level of Care Code New Pt Level 3 (00839) Diagnoses Pre-op examination Z01.818
[2024-03-08 13:26] VITALS: BP 134/71; PULSE 68; BMI 37.4
== END 2024-03-08 13:45 | disposition home or self-care (01) ==
PROVIDERS: PCP Family Medicine; Visit Provider Nurse Practitioner
DX: Z01.818 Encounter for other preprocedural examination (principal); Z12.11 Encounter for screening for malignant neoplasm of colon
CPT/HCPCS: S0285

== ENCOUNTER → 2024-03-08 13:19 | Outpatient (BNVA) | payer BC, SELFPAY | PROVIDERS: PCP Family Medicine; Visit Provider Nurse Practitioner ==

== ENCOUNTER 2024-10-26 07:05 | Outpatient (REF) | payer BC, SELFPAY ==
--- OUTSIDE RECORDS SUMMARY | 2024-01-09 09:00 | XMS_ITS ---
Author Organization [facility] Address [address] [place] [address] Care Team Providers Care Polish Compounder Name Role Phone Paulina WALDEN, Teo Primary Care Provider Eulogio Hussein Unavailable [phone] Encounters Encounter Location Date Provider Diagnosis [address] [address] 01/09/2024 Eulogio Ross Plan Of Treatment No Information Progress Notes * Parmjit KIRKPATRICK MDOB:1980 (44 yo M)Acc No.[id number]:01/09/2024 Progress Notes Patient: Parmjit GARCIA Provider: Mauro Ross DPM :1980 A ge:43 Y S ex:Male Date:01/09/2024 Address:[address] [place], [place] [phone] Pcp:Teo Gallardo MD Subjective: * Chief Complaints: [...] 1 Generated for Printi ng/Faxing/eTransmitting on: 0 10/26/2024 07:08 AM EDT
--- OUTSIDE RECORDS SUMMARY | 2024-10-26 07:08 | XMS_ITS | Clinical Summary ---
Author Organization [facility] Address [address] [place] [phone] Phone Care Team Providers Care Product Management Specialist Name Role Phone Unavailable Primary Care Provider Unavailabl e Allergies No known active allergies Medications No known medications Active Problems Problem Noted Date Diagnosed Date Class 1 obesity due to exces s calories without serious comorbidity with body mass index (BMI) of 33.0 to 33.9 in adult 08/05/2021 Elevated glucose level 08/05/2021 Encounter for routine adult health examination with abnormal findings 05/09/2019 Assessment & Plan (06/17/2021 9:05 PM EDT): Labs: negative DM and cholesterol screen in 2020. Immunizations: declines flu shot. Counseling provided. utd on covid-19 vaccines. tdap given today Colonoscopy: not indicated until age 45 Plan to follow up annually for CPE and as needed Assessment & Plan (05/15/2020 3:55 PM EST): Labs: repeat CMP to check ALT. HIV and Hep C screen ordered Immunizations: tetanus utd. Next due 2021. Flu shot declined. He plans to get covid-19 vaccination once eligible Colonoscopy: not indicated until age 45 Plan to follow up annually for CPE and as needed Assessment & Plan (05/09/2019 1:39 PM EST): Up to date on health maintenance. Labs: lipids/a1c/cbc/cmp ordered Immunizations: tetanus utd. Next due 2021. Flu shot given today in office Colonoscopy: not indicated Plan to follow up annually for CPE and as needed Immunizations Immunization Administration Dates Next Due INFLUENZA, SPLIT VIRUS, TRIVALENT W/ PRESERVATIV E IM 01/23/2012 Influenza Recombinant Petra valent Preservative Free IM 05/09/2019 Tdap 06/16/2021,01/23/2012 Family History Relation Status Comments Daughter Alive Father Alive Mother Alive Paternal Grandfather Sister Alive Social History Tobacco Use Types Packs/Day Years Used Date Smoking Tobacco: Never Smokeless Tobacco: Never Alcohol Use Standard Drinks/Week Comments Not Currently 0 (1 standard drink = 0.6 oz pur e alcohol) Child or Family Care Answer Date Record ed Do you have problems with on e of the following making it difficult for you to work, study, or receive health care? No 06/13/2021 Education Answer Date Recorded Are you interested in more education? Not on selene e 07/04/2023 Are you concerned about learning? Not on file 07/04/2023 No 07/04/2023 No 07/04/2023 Food Answer Date Recorded Within the past 6 months we worried whether our food would run out before we got money to buy more. Never True 06/13/2021 Within the past 6 months the food we bought just didn't last and we didn't have enough money to get more. Never True Residential Stability Answer Date Recor ded What is your housing situation today? I have delmis sing 06/13/2021 How many times have you move d in the past 12 months? Zero (I did not move) 06/13/2021 06 Are you worried that in t he next 2 months, you may not have your own housing to live in? No 06/13/2021 Paying for Meds Answer Date Recorded Do you have trouble paying for medicines? No 06/13/2021 Paying Utility Bills Answer Date Record ed Do you have trouble paying your heating or elect ricity bill? No 06/13/2021 Transportation Answer Date Recorded Has the lack of transportati on kept you from medical appointments or from getting medications? No 06/13/2021 Unemployment Answer Date Recorded Are you currently unemployed or working on a part-time or temporary basis, and looking for work? No 06/13/2021 Digital Access Answer Date Recorded No 08/12/2022 No 08/12/2022 No 08/12/2022 Reliable internet access at home? Not on file 08/12/2022 Device with a working camera? 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 Not on file Not on file Last Filed Vital Signs Vital Sign Reading Time Taken Comments Blood Pressure 102/66 07/15/2021 2:55 PM EDT Pulse 62 07/15/2021 2:55 PM EDT Temperature 36.9 C (98.4 F) 07/15/2021 2:55 PM EDT Respiratory Rate 16 07/09/2014 2:15 AM EDT Oxygen Saturation 98% 07/15/2021 2:55 PM EDT Inhaled Oxygen Concentration - - Weight 100 kg (220 lb 6.4 oz) 07/15/2021 2:55 PM EDT Height 173.5 cm (5' 8.31 ) 07/15/2021 2:55 PM ED T Body Mass Index 33.21 07/15/2021 2:55 PM EDT Plan of Treatment Health Maintenance Due Date Last Done Comments DEPRESSION SCREENING 07/14/2022 07/14/2021 COLOGUARD 08/08/2023 COLONOSCOPY 08/08/2023 COLORECTAL CANCER SCREENING 08/08/2023 FIT TEST 08/08/2023 FOBT 08/08/2023 SIGMOIDOSCOPY 08/08/2023 VIRTUAL COLONOSCOPY 08/08/2023 COVID-19 VACCINE (2023-2 5 season) 2023 01/09/2021, 07/04/2020, 06/11/2020 LIPID PANEL 05/10/2024 05/10/2019, 05/10/2019 Adult Td,Tdap Booster 06/17/2031 06/16/2021 , 01/23/2012 HEPATITIS C SCREENING Completed 05/15/2020 , 05/15/2020 HIV ONE-TIME SCREENING (18-6 5 YEARS) Completed 05/15/2020 SMOKING STATUS SCREENING (On ce After 26 Yrs) Completed 07/15/2021 HEPATITIS A VACCINES Aged Out No long er eligible based on patient's age to complete this topic HIB VACCINES Aged Out No longer eligi ble based on patient's age to complete this topic MENINGOCOCCAL VACCINES (ACWY) Aged Out No longer eligible based on patient's age to complete this topic MENINGOCOCCAL VACCINES (B) Aged Out N o longer eligible based on patient's age to complete this topic PNEUMOCOCCAL VACCINES (0-49 years) Aged Out No longer eligible b ased on patient's age to complete this topic Medical Devices Not on file Procedures Procedure Name Priority Date/Time Associated Diagnosis Comments HEPATITIS C ANTIBODY, QUALITATIVE Routine 05/15/2020 3:58 PM EST Encounter for routine adult health examination without abnormal findings LIPID PANEL Routine 05/10/2019 11:26 AM EST Annual physical exam from Last 3 Months or Most Recently Relevant to Health Maintenance Results * Hepatitis C antibody, qualitative (05/15/2020 3:58 PM EST) HCV NON-REACTIV E NON-REACTI VE [facility] Blood 05/15/2020 3:58 PM EST 05/15/2020 4:03 PM EST Twila COHEN LAB BLOOD ORDERABLES Final Result Performing Organization Address City/State/[facility] Co de Phone Number [address] [address] * (ABNORMAL) Lipid panel (05/10/2019 11:26 AM EST) HDL 52 mg/dL [facility] Comment: Interpretation <40 mg/dL: Low HDL cholesterol (major risk factor for CHD) Greater than or equal to 60 mg/dL: High HDL cholesterol ( negative risk factor for CHD) HDL - cholesterol is affected by a number of factors, e.g. smoking, excerise, hormones, sex and age. CHOLESTEROL 172 0 - 240 mg/dL [facility] TRIGLYCERIDES 83 30 - 160 mg/dL [facility] LDL 103 50 - 129 mg/dL [facility] Comment: LDL levels in terms of risk for coronary heart disease: <100 mg/dL: Optimal 100-129 mg/dL: Near or above optimal 130-159 mg/dL: Borderline high 160-189 mg/dL: High >190 mg/dL: Very High CARDIAC RISK RATIO 3.3(L) 3.4 - 5.0 C [facility] Blood 05/10/2019 11:2 6 AM EST 05/10/2019 11:28 AM EST us Twila COHEN LAB BLOOD ORDERABLES Final Result [facility] [address] [place] [address] from Last 3 Months or Most Recently Relevant to Health Maintenance [facility] HMO POS Member Subscriber Plan / Payer (Ef fective 2018-Present) Name:Parmjit Kirk Relation to Subscriber:Self Name:Parmjit Kirk Payer ID:[id number] (NAIC) Type:HMO Address: [address] [place] [id number] [place], [place] [id number] [address] [address] HMO POS [facility] HMO POS [facility] HMO POS [place] HMO POS Advance Directives For more information, please contact: [phone] (9AM - 5PM [facility], Monday-Monday) Documents on File Type Date Recorded Patient Patrol Sergeant Sheriff'S Office Expl anation MOLST 06/16/2021 MOLST Completed 05/20/21 Additional Source Comments The information contained in this document represents components of the legal health record. It is not the complete legal health record.[facility]
[2024-10-26 12:45] LABS: Alanine Aminotransferase 64 U/L (0-40); Albumin Level 4.5 g/dL (3.5-5.0); Alkaline Phosphatase 81 U/L (39-117); Anion Gap 13 (12-20); Aspartate Amino Transferase 36 U/L (5-37); Blood Urea Nitrogen 21 mg/dL (9-16); Calcium 8.9 mg/dL (8.4-10.2); Carbon Dioxide 25 mmol/L (22-29); Chloride 105 mmol/L (96-108); Cholesterol 178 mg/dL (<200); Estimated Glomerular Filt Rate > 60; HDL Cholesterol 45 mg/dL (>40); Potassium 4.0 mmol/L (3.3-5.1); Sodium 139 mmol/L (135-145); Total Protein 7.0 g/dL (6.5-8.0); Triglycerides 91 mg/dL (<150)
== END 2024-10-26 07:06 | disposition home or self-care (01) ==
LOC: HO.HMGCLDS 07:05
PROVIDERS: PCP Family Medicine; Visit Provider Family Medicine
DX: Z00.00 Encounter for general adult medical examination without abnormal findings (principal); E78.00 Pure hypercholesterolemia, unspecified
CPT/HCPCS: 36415; 80053; 80061

== ENCOUNTER 2024-10-28 09:02 | Outpatient (AMB) | payer BC, SELFPAY ==
--- OUTSIDE RECORDS SUMMARY | 2024-01-09 09:00 | XMS_ITS ---
Author Organization [facility] Address [address] [place] [address] Care Team Providers Care Chef Manager Name Role Phone Paulina WALDEN, Teo Primary Care Provider Eulogio Hussein Unavailable [phone] Encounters Encounter Location Date Provider Diagnosis [address] [address] 01/09/2024 Eulogio Ross Plan Of Treatment No Information Progress Notes * Parmjit KIRKPATRICK MDOB:1980 (44 yo M)Acc No.[id number]:01/09/2024 Progress Notes Patient: Parmjit GARCIA Provider: Mauro Ross DPM :1980 A ge:43 Y S ex:Male Date:01/09/2024 Address:[address] [place], [place] [phone] Pcp:Teo Gallardo MD Subjective: * Chief Complaints: [...] 1 Generated for Printi ng/Faxing/eTransmitting on: 0 10/28/2024 09:30 AM EDT
--- NOTE | 2024-10-28 09:04 | A.OFFPC_ITS ---
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 Required: No Allergies No Known Allergies Allergy (Verified 10/28/24 09:05) Medication List - Last Reconciled 10/28/24 by Teo Gallardo MD sod sulf-pot chloride-mag sulf 1.479-0.188- 0.225 gram (Sutab) PO PER PKG DIR for colonoscopy prep Tobacco use date assessed: 10/28/24 Dental Screening Dental Screen Date: 10/28/24 Did you have a dental visit in the last 12 months?: Yes Did you have a dental problem in the last 6 months where you did not have access to dental care?: No Was dental information given to patient?: Patient has dentist HPI PE Annual HPI Details 44 y/o male presents for a CPE with f/u labs and health maint. Labs drawn 10/26/24. Reviewed labs with pt. Triglycerides 91. TC 178. LDL 115. HDL 45. Elevated fasting glucose of 107. HPI Comments History of Present Illness Details Documentation assistance for Teo Gallardo MD, was provided by Wellington Cunningham,? Professor Criminal Justice on 10/28/2024 at 9:20 AM SACHA. I, Dr. Gallardo, have read, observed, and verified documentation. ?? [facility] Medical History (Updated 10/28/24 @ 09:38 by Wellington Cunningham) Screening for colon cancer Screening for prostate cancer Adult general medical examination Back pain Social History Household Members: None Both parents involved: No Caregiver staying overnight: No Housing: Condominium Are you a primary women's health care nurse practitioner to a significant other at home: No Do you presently have visiting nurse or other home services: No 75 years or older and lives alone: No Alcohol intake: current Alcohol intake frequency: holidays/special occasions only Patient Tobacco Use Status: Never used Tobacco e-Cigarette/Vaping Use: Never Used service: No Current occupational status: employed 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 1. Little interest or pleasure in doing things: not at all 2. Feeling down, depressed, or hopeless: not at all 3. Trouble falling or staying asleep, or sleeping too much: not at all 4. Feeling tired or having little energy: not at all 5. Poor appetite or overeating: not at all 6. Feeling bad about yourself - or that you are a failure or have let yourself or your family down: not at all 7. Trouble concentrating on things, such as reading the newspaper or watching television: not at all 8. Moving or speaking so slowly that other people could have noticed. Or the opposite - being so fidgety or restless that you have been moving around a lot more than usual: not at all 9. Thoughts that you would be better off or of hurting yourself in some way: not at all Total score: 0 Depression Screening Interpretation: Negative Depression Screening Done: Yes 43197 - PHQ-9 Billing: Yes Source: Developed by Drs. Thaddeus Pool, Berkley Quinn, Asael Leal and colleagues, with an educational wellington from [employer]. Thrive Questionnaire Date Thrive assessed: 10/28/24 I am a: Patient What is your living situation today?: I have a steady place to live Within the past 12 months, did the food you bought not last and you didn't have the money to get more?: Never true Within the past 12 months, did you worry whether your food would run out before you got money to buy more?: Never true Do you have trouble paying for medicines?: No Do you have trouble getting transportation to medical appointments?: No Do you have trouble paying your heating and electricity bill?: No Do you have trouble taking care of your child, family member or friend?: No Do you have trouble with day-to-day activities such as bathing, preparing meals, shopping, managing finances, etc.?: No Are you currently unemployed and looking for a job?: No Are you interested in more education?: No Please select the resources that you would like help with: None Currently or been in a relationship where the following occur: No concerns reported THRIVE Score: 0 AUDIT C Alcohol Use Questionnaire (AUDIT-C) 1. How often do you have a drink containing alcohol?: 2-4 times a month 2. How many drinks containing alcohol do you have on a typical day when you are drinking?: 1 or 2 3. How often do you have six or more drinks on one occasion?: Never Total Score: 2 MACK-7 AMB Questionnaire MACK-7 Date MACK - 7 assessed: 10/28/24 Feeling nervous, anxious, or on edge: 0 = Not at all Not being able to stop or control worryin = Not at all Worrying too much about different things: 0 = Not at all Trouble relaxin = Not at all Being so restless that it is hard to sit still: 0 = Not at all Becoming easily annoyed or irritable: 0 = Not at all Feeling afraid as if something awful might happen: 0 = Not at all Total MACK-7 score (0-4 normal; 5-9 mild; 10-14 moderate; 15-21 severe): 0 Source: Developed by Drs. Thaddeus Pool, Berkley Quinn, Asael Leal and colleagues, with an educational wellington from [employer]. MACK-7 Assessment Billing MACK-7 Assessment Tool: MACK-7 Assessment 97566 Review of Systems Const Denies chills, Denies fatigue, Denies fever(s), Denies headache(s) and Denies weakness Eyes Denies change in vision ENT Denies dizziness, Denies headache(s), Denies hearing loss, Denies nasal congestion, Denies sinus pain, Denies sinus pressure and Denies sore throat Card Denies chest pain, Denies lightheadedness, Denies dyspnea and Denies other (palpitations) Resp Denies cough, Denies dyspnea and Denies wheezing GI Denies abdominal pain, Denies melena, Denies hematochezia, Denies change in bowel habits, Denies dyspepsia and Denies nausea Denies hematuria and Denies dysuria Musc Denies abnormal gait, Denies myalgias, Denies arthralgias, Denies numbness and Denies tingling Skin/Breast Denies rash, Denies unusual bruising and Denies wounds Neuro Denies abnormal gait, Denies dizziness, Denies headache(s), Denies memory loss, Denies numbness, Denies Sensory deficit (Neuro), Denies tingling and Denies weakness Psych Denies anxiety, Denies depression and Denies memory loss Endo Denies cold intolerance, Denies fatigue, Denies heat intolerance, Denies polydipsia and Denies polyuria Cecil/Lymph Denies easy bleeding and Denies easy bruising Aller/Immun Denies wheezing Physical exam (Primary Care) Vital Signs: Last Vital Signs Temp 97.3 F 10/28/24 09:08 Pulse 66 10/28/24 09:08 Resp 12 10/28/24 09:08 BP 127/66 10/28/24 09:08 Pulse Ox 98 10/28/24 09:08 Oxygen Delivery Method Room Air 10/28/24 09:08 BMI result Body Mass Index 37.4 Tobacco/Smoking Status: Tobacco use Status Tobacco use date assessed 10/28/24 10/28/24 09:06 Patient Tobacco Use Status Never used Tobacco 10/28/24 09:06 e-Cigarette/Vaping Use Never Used 10/28/24 09:06 PHQ-9: PHQ-9 Score PHQ-9: Total score 0 10/28/24 09:19 Depression Screening Interpretation: Negative Thrive Assessment: Date of Thrive Assessment Date Thrive assessed 10/28/24 10/28/24 09:06 Currently or been in a relationship where the following occur: No concerns reported Const General: no acute distress, well developed, alert and awake Nutritional Appearance: well nourished Orientation/consciousness: patient oriented x3 HENMT Head: Yes normocephalic and Yes atraumatic Ears: hearing grossly normal bilaterally and TM's normal bilaterally General nose exam: Normal external nose present and Normal nares present Mouth: Normal oral and palatal mucosa present and moist mucous membranes Teeth and gingiva: dentition normal Throat: Yes posterior oropharynx normal Eyes General: appearance normal, both eyes and all related structures Pupils: Equal, round and reactive pupils present and Pupil accommodation reflex normal EOM: EOMs intact bilaterally Neck Neck: Yes normal visual inspection, Yes no lymphadenopathy and Yes trachea midline Thyroid: Thyroid normal Carotids: no bruits Lymphatic: no lymphadenopathy noted Chest Chest palpation & inspection: normal inspection of the chest Resp Effort & Inspection: normal respiratory effort Auscultation: clear to auscultation bilaterally Cardio Rate: regular rate Rhythm: regular rhythm Heart sounds: S1 normal heart sound present, S2 normal heart sound present, no gallops, no murmurs and no rubs Bruits: no abdominal aortic bruits and no carotid bruits GI Palpation (GI): No Abdominal aortic bruit present, Soft to palpation, nontender, No hepatosplenomegaly present and No Rebound tenderness present Auscultation: normal bowel sounds General: Yes no CVA tenderness Back/Spine/Pelvis Back: no CVA tenderness Cervical Spine: cervical ROM normal and No Cervical spine tenderness Thoracic/Lumbar Spine: thoraco-lumbar ROM normal, No pain with thoraco-lumbar ROM, No thoracic spinal tenderness and No lumbar spinal tenderness Skin Lesions: no lesions Rashes: no rashes Trauma: no lacerations or abrasions Wounds: no wounds Nails: normal Neuro General: patient oriented x3 Cranial nerves: Yes Equal, round and reactive pupils present Cognition (Neuro): normal cognition Gait exam (Neuro): Normal gait present Motor exam (neuro): 5/5 motor strength present throughout Sensory Exam: No Sensory deficit (Neuro) Deep tendon reflexes (DTR's): Right patellar reflex intensity grade: 2+ and Left patellar reflex intensity grade: 2+ Extrem General: Yes normal to inspection and No edema Psych Appearance: grossly normal Affect: normal affect Attitude: cooperative Thought process: Normal thought process present Coding Level of Care Code Est Pt Level 3 (76704) Est Pt Prev Care 40-64y(41182) Diagnoses Adult general medical examination Z00.00 Elevated fasting glucose R73.01 Elevated liver enzymes R74.8 Elevated LDL cholesterol level E78.00 Screening for prostate cancer Z12.5 Screening for colon cancer Z12.11 Additional Codes MACK-7 Assessment Billing - MACK-7 Assessment Tool: MACK-7 Assessment 78187 ([id number]) PHQ-9 - 85716 - PHQ-9 Billing: Yes ([id number]) Assessment & Plan Assessment & Plan (1) Adult general medical examination: Code(s): Z00.00 - Encounter for general adult medical examination without abnormal findings Category: Medical Plan: 44-year-old male presents for complete physical exam Encouraged healthy diet with active lifestyle and plenty of exercise (2) Elevated fasting glucose: Code(s): R73.01 - Impaired fasting glucose Category: Medical Plan: Mildly elevated fasting blood sugar. Will recheck this along with an A1c with his next lab draw. (3) Elevated liver enzymes: Code(s): R74.8 - Abnormal levels of other serum enzymes Category: Medical Plan: Mildly elevated liver enzyme Encouraged good hydration and weight loss. Will recheck next lab draw and patient (4) Elevated LDL cholesterol level: Code(s): E78.00 - Pure hypercholesterolemia, unspecified Category: Medical Plan: Elevated LDL cholesterol. His other cholesterol levels within range Encouraged diet lower in saturated fats and cholesterol Encouraged weight loss and exercise Will recheck with next lab draw (5) Screening for prostate cancer: Code(s): Z12.5 - Encounter for screening for malignant neoplasm of prostate Category: Medical Plan: Will recheck PSA level with his upcoming lab draw. (6) Screening for colon cancer: Code(s): Z12.11 - Encounter for screening for malignant neoplasm of colon Category: Medical Plan: Patient has seen Gastroenterology but has not his colonoscopy scheduled yet. Encouraged him to call GI Orders: Orders Comprehensive [place]. Panel Fast Today E78.00 - Pure hypercholesterolemia, unspecified, Z00.00 - Encounter for general adult medical examination without abnormal findings Lipid Panel Today E78.00 - Pure hypercholesterolemia, unspecified, Z00.00 - Encounter for general adult medical examination without abnormal findings Hemoglobin A1c Today R73.01 - Impaired fasting glucose Prostate Specific Antigen Scr Today Z12.5 - Encounter for screening for malignant neoplasm of prostate TSH reflex Free T4 Today Z00.00 - Encounter for general adult medical examination without abnormal findings
[2024-10-28 09:08] VITALS: BP 127/66; PULSE 66; RESP 12; TEMP 36.3; O2SAT 98; BMI 37.4
== END 2024-10-28 09:37 | disposition home or self-care (01) ==
LOC: HO.HMCFM 09:03
PROVIDERS: PCP Family Medicine; Visit Provider Family Medicine
DX: Z00.00 Encounter for general adult medical examination without abnormal findings (principal); R73.01 Impaired fasting glucose; R74.8 Abnormal levels of other serum enzymes; E78.00 Pure hypercholesterolemia, unspecified; Z12.5 Encounter for screening for malignant neoplasm of prostate; Z12.11 Encounter for screening for malignant neoplasm of colon

== ENCOUNTER → 2024-10-28 09:02 | Outpatient (BNVA) | payer BC, SELFPAY | PROVIDERS: PCP Family Medicine; Visit Provider Family Medicine | DX: Z00.00 Encounter for general adult medical examination without abnormal findings (principal); R73.01 Impaired fasting glucose; R74.8 Abnormal levels of other serum enzymes; E78.00 Pure hypercholesterolemia, unspecified | CPT/HCPCS: 96127 ==

== ENCOUNTER 2024-11-22 12:16 | Day surgery (SDC) | payer BC, SELFPAY ==
--- OUTSIDE RECORDS SUMMARY | 2024-01-09 09:00 | XMS_ITS ---
Author Organization [facility] Address [address] [place] [address] Care Team Providers Care Human Resources Assistant Name Role Phone Paulina WALDEN, Teo Primary Care Provider Eulogio Hussein Unavailable [phone] Encounters Encounter Location Date Provider Diagnosis [address] [address] 01/09/2024 Eulogio Ross Plan Of Treatment No Information Progress Notes * Parmjit KIRKPATRICK MDOB:1980 (44 yo M)Acc No.[id number]:01/09/2024 Progress Notes Patient: Parmjit GARCIA Provider: Mauro Ross DPM :1980 A ge:43 Y S ex:Male Date:01/09/2024 Address:[address] [place], [place] [id number] Pcp:Teo Gallardo MD Subjective: * Chief Complaints: * * Medical History: Objective: * Vitals: Assessment: Plan: * Treatment: * Images: * The named appointment provid er may or may not be the originator of this progress note, and it is not deemed complete until electronically signed by the appointment provider. Sign off status: Pending * Provider: Mauro Ross DPM Date: 1 Generated for Printi ng/Faxing/eTransmitting on: 0 11/08/2024 10:28 AM EDT
--- OUTSIDE RECORDS SUMMARY | 2024-11-08 10:28 | XMS_ITS | Clinical Summary ---
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 Not on file [...] PM EST) HCV NON-REACTIV E NON-REACTI VE [facility] Blood 05/15/2020 3:58 PM EST 05/15/2020 4:03 PM EST Twila COHEN LAB BLOOD ORDERABLES Final Result Performing Organization Address City/State/[facility] Co de Phone Number [address] [address] * (ABNORMAL) Lipid panel (05/10/2019 11:26 AM EST) HDL 52 mg/dL [facility] Comment: Interpretation <40 mg/dL: Low HDL cholesterol (major risk factor for CHD) Greater than or equal to 60 mg/dL: High HDL cholesterol ( negative risk factor for CHD) HDL - cholesterol is affected by a number of factors, e.g. smoking, excerise, hormones, sex and age. CHOLESTEROL 172 0 - 240 mg/dL [facility] TRIGLYCERIDES 83 30 - 160 mg/dL [facility] LDL 103 50 - 129 mg/dL [facility] Comment: LDL levels in terms of risk for coronary heart disease: <100 mg/dL: Optimal 100-129 mg/dL: Near or above optimal 130-159 mg/dL: Borderline high 160-189 mg/dL: High >190 mg/dL: Very High CARDIAC RISK RATIO 3.3(L) 3.4 - 5.0 C [facility] Blood 05/10/2019 11:2 6 AM EST 05/10/2019 11:28 AM EST us Twila COHEN LAB BLOOD ORDERABLES Final Result [facility] [address] [place] [address] from Last 3 Months or Most Recently Relevant to Health Maintenance [facility] HMO POS Member Subscriber Plan / Payer (Ef fective 2018-Present) Name:Parmjit Kirk Relation to Subscriber:Self Name:Parmjit Kirk Payer ID:[id number] (NAIC) Type:HMO Address: [address] [place] [id number] [place], [place] [address] [address] [place] [address] HMO POS [facility] HMO POS [facility] HMO POS [place] [place] HMO POS Advance Directives For more information, please contact: [phone] (9AM - 5PM [facility], Monday-Monday) Documents on File Type Date Recorded Patient Latent Fingerprint Examiner Expl anation MOLST 06/16/2021 MOLST Completed 05/20/21 Additional Source Comments The information contained in this document represents components of the legal health record. It is not the complete legal health record.[facility]
--- NOTE | 2024-11-22 12:24 | MHC.SHP ---
Pre-Procedural Eval Section A - 24 Hr Update-Section A only Date of Service: 11/22/24 The patient is an INPATIENT: No The patient has been examined within 24 hours of the surgical procedure. The History & Physical has been completed within 30 days and I have reviewed it.: No Section B - Complete if H&P > 30 days Chief Complaint: screening Relevant Family History (Specify if Yes): No Relevant Social History: None Present Medications: see Short Stay Collaborative assessment Medical History: Significant History (Back pain, elevated LFTs) History of Previous Operations: No relevant previous surgery Allergies: Allergies Allergy/AdvReac Type Severity Reaction Status Date / Time No Known Allergies Allergy Verified 10/28/24 09:05 Review of Systems Sugical H&P ROS: Negative: Constitution, Cardiovascular, Respiratory and Gastrointestinal Exam Surgical H&P Exam: Normal: Heart, Normal: Lungs, Normal: Extremities and Normal: Abdomen Plan Diagnosis/Plan: Unchanged I have reviewed the history and physical and performed a pertinent physical examination on my patient. No changes have occurred unless specified. Time Spent With Patient Time: Total time managing care of this patient today ____ minutes.
[2024-11-22 12:49] VITALS: BMI 34.3
[2024-11-22] MEDS: Lactated Ringers 1,000 ML 100 ML IVCONT (12:53)
--- NOTE | 2024-11-22 13:00 | P.CONAN_ITS ---
Documented by User: Tonie Smith NP 11/20/24 13:26 HPI - Anesthesia Eval Consult details Narrative: 44 yr old male for colonoscopy [facility] Active Problems Active Problems: All Active Problems (Updated 10/28/24 @ 09:38 by Wellington Cunningham) Elevated liver enzymes (Acute) Elevated fasting glucose (Acute) Screening for prostate cancer (Acute) Screening for colon cancer (Acute) Adult general medical examination (Acute) Pre-op examination (Acute) Elevated LDL cholesterol level (Acute) Pain of left heel (Acute) Bilateral foot pain (Acute) Pain of right heel (Acute) Past Medical History Medical History Screening for colon cancer Screening for prostate cancer Adult general medical examination Back pain Social History Social History Household Members: None [facility] Are you a primary home care provider to a significant other at home: No Do you presently have visiting nurse or other home services: No Alcohol intake: current Alcohol intake frequency: holidays/special occasions only Patient Tobacco Use Status: Never used Tobacco e-Cigarette/Vaping Use: Never Used Have you been hit, kicked, punched, or otherwise hurt by someone within the past year? 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 Cognitive needs: No Hearing needs: No Vision needs: Yes Meds Allergies Allergy/AdvReac Type Severity Reaction Status Date / Time No Known Allergies Allergy Verified 11/22/24 12:51 Home Medications ?Medication ?Instructions ?Recorded ?Confirmed ?Last Taken ?Type No Known Home Meds 11/22/24 11/22/24 Un known History Documented by User: Lillian Bailey DO 11/22/24 13:32 [facility] Past Medical History Medical History Screening for colon cancer Screening for prostate cancer Adult general medical examination Back pain Family History Family history of problems with anesthesia: No Surgical History History of Problems with Anesthesia: No Social History Social History Household Members: None Housing: Condominium Are you a primary home care provider to a significant other at home: No Do you presently have visiting nurse or other home services: No Alcohol intake: current Alcohol intake frequency: holidays/special occasions only Patient Tobacco Use Status: Never used Tobacco e-Cigarette/Vaping Use: Never Used Have you been hit, kicked, punched, or otherwise hurt by someone within the past year? 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 Cognitive needs: No Hearing needs: No Vision needs: Yes Meds Allergies Allergy/AdvReac Type Severity Reaction Status Date / Time No Known Allergies Allergy Verified 11/22/24 12:51 Home Medications ?Medication ?Instructions ?Recorded ?Confirmed ?Last Taken ?Type No Known Home Meds 11/22/24 11/22/24 Un known History Exam Exam Date and Time: 11/22/24 1300 Height,Weight and Vital Signs: Height 5 ft 9 in Weight 105.5 kg Vital Signs Temperature 97.9 F 11/22/24 13:01 Pulse Rate 71 11/22/24 13:01 Respiratory Rate 18 11/22/24 13:01 Blood Pressure 135/84 11/22/24 13:01 Pulse Oximetry 100 11/22/24 13:01 Oxygen Delivery Method Room Air 11/22/24 13:01 Temperature 97.9 F 11/22/24 13:01 Pulse Rate 71 11/22/24 13:01 Respiratory Rate 18 11/22/24 13:01 Blood Pressure 135/84 11/22/24 13:01 Pulse Oximetry 100 11/22/24 13:01 Oxygen Delivery Method Room Air 11/22/24 13:01 Airway Mallampati Class: II TM Dist: >3cm Neck ROM: Full Loose/Missing/Broken Teeth: No (patient denies any loose or broken teeth) Heart: S1S2 Lungs: CTAB Assessment and Plan Assessment Anesthesia Assessment: Anesthesia Plan Discussed and Chart Reviewed Final Anesthetic Review Family History of Problems with Anesthesia: No History of Problems with Anesthesia: No NPO: Yes ASA Class: I Final Preanesthetic Review: No Changes in Pt Med Stat, Meds/Allgs Chart Reviewed, Consent Obtained/Reviewed and Anes Risks/Benef Reviewed Patient Risk: Low Procedure Risk: Low Anesthetic Plan Anesthetic Plan: MAC: and Agree w/ Assess. and Plan Disposition: Standard PACU
[2024-11-22 13:01] VITALS: BP 135/84; PULSE 71; RESP 18; TEMP 36.6; O2SAT 100
--- NOTE | 2024-11-22 14:25 | P.OPN-COLO_ITS ---
Colonoscopy Operative Note Operative Note Date of Service: 11/22/24 Narrative: COLONOSCOPY TILL CECUM WITH SNARE POLYPECTOMY AND HEMOCLIP PLACEMENT Pre-op diagnosis: Colon cancer screening (First colon). Post-op diagnosis:? Colon polyp, Diverticulosis, hemorrhoids Endoscopist:? Hugh Waggoner MD Anesthesia:?MAC Consent: Indications for the procedure and potential complications of bleeding, perforation, reaction to medications and missed diagnosis were discussed with the patient and informed consent was obtained. Instrument: Olympus CF H 190 L variable stiffness adult colonoscope Monitoring: Vital signs and clinical assessment, intermittent blood pressure monitoring, continuous EKG monitoring, Pulse oximetry and Carbon Dioxide monitoring were done throughout the procedure. Please see anesthesia flowsheet. Colon withdrawl time was 20 minutes. Procedure: The patient was placed in the left lateral decubitis position and pre-procedure medications were administered. After a digital rectal examination of the ano-rectum, the video colonoscope was inserted into the rectum and advanced through the colon to the cecum. The colonoscope was slowly withdrawn in a retrograde panoramic fashion and the colon mucosa was carefully examined including a retroflexed view of the rectum. Findings and interventions are described below. Procedure Difficulty: without difficulty Findings: Terminal Ileum: Not evaluated Cecum: A 12-15 mm sessile polyp - removed with a stiff hot snare. Polypectomy site closed closed with 1 hemoclip Ascending Colon: Normal Transverse Colon: Normal Descending Colon: Normal Sigmoid Colon: Moderate diverticulosis Rectum: Normal Ano-rectum: Small internal hemorrhoids Colon preparation: Good in the left colon and fair in the right colon despite copious irrigation. There was a thin layer of adherent stool which could not be/despite copious irrigation. No large lesions were seen and smaller/flat polyps could be missed. [place] Bowel Preparation Scale Right colon; 1 Transverse colon: 2 Left colon; 2 (0 = Unprepared colon segment with mucosa not seen due to solid stool that cannot be cleared. 1 = Portion of mucosa of the colon segment seen, but other areas of the colon segment not well seen due to staining, residual stool and/or opaque liquid. 2 = Minor amount of residual staining, small fragments of stool and/or opaque liquid, but mucosa of colon segment seen well. 3 = Entire mucosa of colon segment seen well with no residual staining, small fragments of stool or opaque liquid) Impression and Post Procedure Diagnosis: Colonoscopy Findings: One medium sized polyp was removed Moderate diverticulosis seen in the left colon Small hemorrhoids on retroflexed exam. Plan: I will send a letter with biopsy results Repeat Colonoscopy in 2 - 3 years if polyp is adenomatous and due to fair prep in the right colon (Dulcolax 10 mg daily starting 3 days prior to next colonoscopy appointment) A summary of above findings and relevant handouts were given to the patient in the discharge area.
[2024-11-22 14:27] VITALS: BP 89/55; PULSE 57; RESP 16; TEMP 36.4; O2SAT 95
[2024-11-22 14:42] VITALS: BP 104/67; PULSE 54; RESP 16; TEMP 36.3; O2SAT 96
== END 2024-11-22 15:33 | disposition home or self-care (01) ==
PROVIDERS: PCP Family Medicine; Visit Provider Internal Medicine Gastroenterology
PROC: 0DJD8ZZ Inspection of Lower Intestinal Tract, Via Natural or Artificial Opening Endoscopic (ICD-10-PCS; CPT 45378; principal; 2024-11-22 14:10)
DX: Z12.11 Encounter for screening for malignant neoplasm of colon (principal); D12.0 Benign neoplasm of cecum; K57.30 Diverticulosis of large intestine without perforation or abscess without bleeding; K64.8 Other hemorrhoids; R79.89 Other specified abnormal findings of blood chemistry; M54.9 Dorsalgia, unspecified
CPT/HCPCS: 45385; 88305; J2704

== ENCOUNTER → 2024-11-22 12:16 | Outpatient (BNV) | payer BC, SELFPAY | PROVIDERS: PCP Family Medicine; Visit Provider Internal Medicine Gastroenterology | DX: Z12.11 Encounter for screening for malignant neoplasm of colon (principal); K63.5 Polyp of colon; K57.90 Diverticulosis of intestine, part unspecified, without perforation or abscess without bleeding; K64.8 Other hemorrhoids | CPT/HCPCS: 45385 ==

== ENCOUNTER 2025-01-23 14:47 | Outpatient (REF) | payer BC, SELFPAY ==
--- OUTSIDE RECORDS SUMMARY | 2024-01-09 08:00 | XMS_ITS ---
Author Organization [facility] Address [address] [place] [address] Care Team Providers Care Privacy Officer Name Role Phone Paulina WALDEN, Teo Primary Care Provider Eulogio Hussein Unavailable [phone] Encounters Encounter Location Date Provider Diagnosis [address] [address] 01/09/2024 Eulogio Ross Plan Of Treatment No Information Progress Notes * Parmjit KIRKPATRICK MDOB:1980 (44 yo M)Acc No.[id number]:01/09/2024 Progress Notes Patient: Parmjit GARCIA Provider: Mauro Ross DPM :1980 A ge:43 Y S ex:Male Date:01/09/2024 Address:[address] [place], [place] [id number] Pcp:Teo Gallardo MD Subjective: * Chief Complaints: * * Medical History: Objective: * Vitals: Assessment: Plan: * Treatment: * Images: * The named appointment provid er may or may not be the originator of this progress note, and it is not deemed complete until electronically signed by the appointment provider. Sign off status: Pending * Provider: Mauro Ross DPM Date: Generated for Jimii ng/Farenettag/eTransmitting on: 03/25/2024 05:56 PM EST
[2025-01-23 16:21] LABS: Alanine Aminotransferase 57 U/L (0-40); Albumin Level 4.4 g/dL (3.5-5.0); Alkaline Phosphatase 73 U/L (39-117); Anion Gap 7 (12-20); Aspartate Amino Transferase 29 U/L (5-37); Blood Urea Nitrogen 19 mg/dL (9-16); Calcium 8.7 mg/dL (8.4-10.2); Carbon Dioxide 31 mmol/L (22-29); Chloride 105 mmol/L (96-108); Cholesterol 159 mg/dL (<200); Estimated Glomerular Filt Rate > 60; HDL Cholesterol 38 mg/dL (>40); Potassium 4.3 mmol/L (3.3-5.1); Sodium 139 mmol/L (135-145); Total Protein 6.7 g/dL (6.5-8.0); Triglycerides 70 mg/dL (<150)
--- OUTSIDE RECORDS SUMMARY | 2025-01-23 17:56 | XMS_ITS | Clinical Summary ---
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 Not on file Not [...] kg (220 lb 6.4 oz) 07/15/2021 2:55 P M EDT Height 173.5 cm (5' 8.31 ) 07/15/2021 2:55 PM ED T Body Mass Index 33.21 07/15/2021 2:55 PM EDT Plan of Treatment Health Maintenance Due Date Last Done Comments DEPRESSION SCREENING 07/14/2022 07/14/2021 COLOGUARD 08/08/2023 COLONOSCOPY 08/08/2023 COLORECTAL CANCER SCREENING 08/08/2023 FIT TEST 08/08/2023 FOBT 08/08/2023 SIGMOIDOSCOPY 08/08/2023 VIRTUAL COLONOSCOPY 08/08/2023 LIPID PANEL 05/10/2024 05/10/2019, 05/10/2019 INFLUENZA VACCINE (#1) 2024 , 01/23/2012 COVID-19 VACCINE (2024-2 6 season) 2024 01/09/2021, 07/04/2020, 06/11/2020 Adult Td,Tdap Booster 06/17/2031 06/16/2021 , 01/23/2012 [...] PM EST) HCV NON-REACTIV E NON-REACTI VE [facility] Blood 05/15/2020 3:58 PM EST 05/15/2020 4:03 PM EST Twila COHEN LAB BLOOD BKR ORDERAB LES Final Result [address] [address] * (ABNORMAL) Lipid panel (05/10/2019 11:26 AM EST) HDL 52 mg/dL [facility] Comment: Interpretation <40 mg/dL: Low HDL cholesterol (major risk factor for CHD) Greater than or equal to 60 mg/dL: High HDL cholesterol ( negative risk factor for CHD) HDL - cholesterol is affected by a number of factors, e.g. smoking, excerise, hormones, sex and age. CHOLESTEROL 172 0 - 240 mg/dL [facility] TRIGLYCERIDES 83 30 - 160 mg/dL [facility] LDL 103 50 - 129 mg/dL [facility] Comment: LDL levels in terms of risk for coronary heart disease: <100 mg/dL: Optimal 100-129 mg/dL: Near or above optimal 130-159 mg/dL: Borderline high 160-189 mg/dL: High >190 mg/dL: Very High CARDIAC RISK RATIO 3.3(L) 3.4 - 5.0 C [facility] Blood 05/10/2019 11:2 6 AM EST 05/10/2019 11:28 AM EST Twila COHEN LAB BLOOD BKR ORDERAB LES Final Result [facility] [address] [place] [address] from Last 3 Months or Most Recently Relevant to Health Maintenance Insurance [facility] [place] [address] [place] [address] HMO POS [facility] [address] [place], [place] [address] [place] [address] [place] [address] [place] [place] [address] HMO POS [facility] Advance Directives For more information, please contact: [phone] (9AM - 5PM [facility], Monday-Monday) Documents on File Type Date Recorded Patient Chronic Disease Epidemiologist Expl anation MOLST 06/16/2021 MOLST Completed 05/20/21 Additional Source Comments The information contained in this document represents components of the legal health record. It is not the complete legal health record.[facility]
--- OUTSIDE RECORDS SUMMARY | 2025-01-23 17:56 | XMS_ITS | Patient Health Record ---
Author Organization [facility] [place] Address [address] [facility] [place] [address] Care Team Providers Care Professor Of Theatre Name Role Phone Teo Gallardo MD Primary Care Provider Eulogio Hussein Unavailable [phone] Allergies No Known Allergies Reason For Referral No Information Medications Medication SIG (Take, Route, Frequency, Duration) Notes Start Date End Date Status Diclofenac Sodium 1 % as directed Externally Active predniSONE 20 MG 1 tablet Orally Once a day; Duration: 30 day(s) 10/13/2023 Not-Wilver ing Arthritis Pain Relief 10/13/2023 Active Social History [...] W/U Status Risk Notes Problem Interstitial myositis (01147141) Interstitial myositis of left foot (M60.172) Active confirmed Plan Of Treatment Pending Test Test Name Order Date X ray : Foot, left 3V 11/28/2023 X ray : Foot, right 3V 02/27/2013 Insurance Providers Payer Name Payer Address Payer Phone Subscriber Number Group Number Insured Name Patient Relationship to Insured Coverage Start Date Coverage End Date [facility] [address] [place] [address] [id number] Parmjit [place] Self - patient is the insured Medical (General) History Medical History History ICD Code covid-19 Chicken pox Surgical History Surgery Date(Month/Year)
== END 2025-01-23 14:48 | disposition home or self-care (01) ==
LOC: HO.LAB 14:47
PROVIDERS: PCP Family Medicine; Visit Provider Family Medicine
DX: Z00.00 Encounter for general adult medical examination without abnormal findings (principal); Z12.5 Encounter for screening for malignant neoplasm of prostate; E78.00 Pure hypercholesterolemia, unspecified; R73.01 Impaired fasting glucose
CPT/HCPCS: 36415; 80053; 80061; 83036; 84153; 84443

== ENCOUNTER 2025-01-28 09:58 | Outpatient (AMB) | payer BC, SELFPAY ==
--- OUTSIDE RECORDS SUMMARY | 2024-01-09 08:00 | XMS_ITS ---
Author Organization [facility] Address [address] [place] [address] Care Team Providers Care Pipe Welder Name Role Phone Paulina WALDEN, Teo Primary Care Provider Eulogio Hussein Unavailable [phone] Encounters Encounter Location Date Provider Diagnosis [address] [address] 01/09/2024 Eulogio Ross Plan Of Treatment No Information Progress Notes * Parmjit KIRKPATRICK MDOB:1980 (44 yo M)Acc No.[id number]:01/09/2024 Progress Notes Patient: Parmjit GARCIA Provider: Mauro Ross DPM :1980 A ge:43 Y S ex:Male Date:01/09/2024 Address:[address] [place], [place] [phone] Pcp:Teo Gallardo MD Subjective: * Chief Complaints: [...] DPM Date: Generated for Jimii ng/Farenettag/eTransmitting on: 03/30/2024 11:21 AM EST
--- NOTE | 2025-01-28 09:37 | A.OFFPC_ITS ---
Intake Visit Reasons: f/u CPE-labs via telemed Intake Note: patient is scheduled to review lab results with pcp Marketing Associate Required: No Allergies No Known Allergies Allergy (Verified 01/28/25 09:38) Tobacco use date assessed: 10/28/24 Dental Screening Dental Screen Date: 10/28/24 HPI f/u CPE-labs via telemed HPI Details 44 y/o male presents to f/u labs via tel emed. Elevated ALT of 57. Triglycerides 70. TC 159. LDL 107. HDL low at 38. PSA 1.44. PFSH Medical History (Updated 01/28/25 @ 11:54 by Wellington Cunningham) Screening for colon cancer Screening for prostate cancer Adult general medical examination Back pain Social History Household Members: None Both parents involved: No Caregiver staying overnight: No Housing: Condominium Are you a primary rental boats caretaker to a significant other at home: No Do you presently have visiting nurse or other home services: No 75 years or older and lives alone: No Alcohol intake: current Alcohol intake frequency: holidays/special occasions only Patient Tobacco Use Status: Never used Tobacco e-Cigarette/Vaping Use: Never Used service: No Current occupational status: employed 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 Thaddeus Pool, Berkley Quinn, Asael Leal and colleagues, with an educational [place] from [employer]. Review of Systems Const Denies chills, Denies fatigue, Denies fever(s), Denies headache(s) and Denies weakness ENT Denies dizziness and Denies headache(s) Card Denies dyspnea Resp Denies cough, Denies dyspnea, Denies wheezing and Denies other (shortness of breath) Musc Denies numbness and Denies tingling Neuro Denies dizziness, Denies headache(s), Denies numbness, Denies tingling and Denies weakness Psych Denies anxiety and Denies depression Endo Denies fatigue Aller/Immun Denies wheezing Physical exam (Primary Care) Tobacco/Smoking Status: Tobacco use Status Tobacco use date assessed 10/28/24 01/28/25 09:38 Patient Tobacco Use Status Never used Tobacco 01/28/25 09:38 e-Cigarette/Vaping Use Never Used 01/28/25 09:38 Thrive Assessment: Date of Thrive Assessment Date Thrive assessed 10/21/24 01/28/25 09:59 Const General: well developed; No acute distress Nutritional Appearance: well nourished Orientation/consciousness: patient oriented x3 HENMT Head: Yes normocephalic and Yes atraumatic Eyes General: appearance normal, both eyes and all related structures Pupils: Equal, round and reactive pupils present EOM: EOMs intact bilaterally Resp Effort & Inspection: normal respiratory effort Neuro General: patient oriented x3 and gait normal Cranial nerves: Yes Equal, round and reactive pupils present Psych Affect: normal affect Coding Level of Care Code Tele Est Pt Level 2 (67670) Diagnoses Elevated LDL cholesterol level E78.00 Low HDL (under 40) E78.6 Elevated fasting glucose R73.01 Elevated liver enzymes R74.8 Screening for prostate cancer Z12.5 Assessment & Plan Assessment & Plan (1) Elevated LDL cholesterol level: Code(s): E78.00 - Pure hypercholesterolemia, unspecified Category: Medical Plan: LDL cholesterol continues to decrease and is nearly at goal of less than 100 HDL is a little low Continue working on diet low in saturated fats and cholesterol but try to increase ratio of Vaughn 3 fatty acids in diet Continue exercise (2) Low HDL (under 40): Code(s): E78.6 - Lipoprotein deficiency Category: Medical Plan: As above (3) Elevated fasting glucose: Code(s): R73.01 - Impaired fasting glucose Category: Medical Plan: Fasting blood sugar now in normal range A1c 5.4% is also in normal range Continue working on diet low in sugars and starches Continue weight loss (4) Elevated liver enzymes: Code(s): R74.8 - Abnormal levels of other serum enzymes Category: Medical Plan: Elevated liver enzymes and patient has been working on weight loss ALT has declined though is still slightly elevated Continue to work at weight loss and good hydration Will recheck in a few months (5) Screening for prostate cancer: Code(s): Z12.5 - Encounter for screening for malignant neoplasm of prostate Category: Medical Plan: PSA was within normal limits Will continue annual screening Orders: Orders Comprehensive [place]. Panel Fast Today R74.8 - Abnormal levels of other serum enz ymes, Z00.00 - Encounter for general adult medical examination without abnormal findings Lipid Panel Today E78.00 - Pure hypercholesterolemia, unspecified, Z00.00 - Encounter for general adult medical examination without abnormal findings
--- OUTSIDE RECORDS SUMMARY | 2025-01-28 11:22 | XMS_ITS | Clinical Summary ---
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 file [...] on patient's age to complete this topic IPV VACCINES Aged Out No longer eligi ble [...] PM EST) HCV NON-REACTIV E NON-REACTI VE [facility] Blood 05/15/2020 3:58 PM EST 05/15/2020 4:03 PM EST Twila COHEN LAB BLOOD BKR ORDERAB LES Final Result [facility] [address] [place] [address] * (ABNORMAL) Lipid panel (05/10/2019 11:26 AM EST) HDL 52 mg/dL [facility] Comment: Interpretation <40 mg/dL: Low HDL cholesterol (major risk factor for CHD) Greater than or equal to 60 mg/dL: High HDL cholesterol ( negative risk factor for CHD) HDL - cholesterol is affected by a number of factors, e.g. smoking, excerise, hormones, sex and age. CHOLESTEROL 172 0 - 240 mg/dL [facility] TRIGLYCERIDES 83 30 - 160 mg/dL [facility] LDL 103 50 - 129 mg/dL [facility] Comment: LDL levels in terms of risk for coronary heart disease: <100 mg/dL: Optimal 100-129 mg/dL: Near or above optimal 130-159 mg/dL: Borderline high 160-189 mg/dL: High >190 mg/dL: Very High CARDIAC RISK RATIO 3.3(L) 3.4 - 5.0 C [facility] Blood 05/10/2019 11:2 6 AM EST 05/10/2019 11:28 AM EST Twila COHEN LAB BLOOD BKR ORDERAB LES Final Result Performing Organization Address City/State/[facility] Co de Phone Number [address] [address] from Last 3 Months or Most Recently Relevant to Health Maintenance Insurance [facility] [place] [address] [place] [address] [place] [address] [place] [address] POS [facility] H[facility] POS [facility] HMO POS [facility] HMO POS [facility] Advance Directives For more information, please contact: [phone] (9AM - 5PM [facility], Monday-Monday) Documents on File Type Date Recorded Patient Air Control Electronics Operator Expl anation MOLST 06/16/2021 MOLST Completed 05/20/21 Additional Source Comments The information contained in this document represents components of the legal health record. It is not the complete legal health record.[facility]
--- OUTSIDE RECORDS SUMMARY | 2025-01-28 11:22 | XMS_ITS | Patient Health Record ---
Author Organization [facility] [place] Address [address] [facility] [place] [address] Care Team Providers Care Conference Services Coordinator Name Role Phone Teo Gallardo MD Primary Care Provider Eulogio Hussein Unavailable [phone] Allergies No Known Allergies Reason For Referral [...] W/U Status Risk Notes Problem Interstitial myositis (78469751) Interstitial myositis of left foot (M60.172) Active confirmed Plan Of Treatment Pending Test Test Name Order Date X ray : Foot, left 3V 11/28/2023 X ray : Foot, right 3V 02/27/2013 Insurance Providers Payer Name Payer Address Payer Phone Subscriber Number Group Number Insured Name Patient Relationship to Insured Coverage Start Date Coverage End Date [facility] [address] [place] [address] [id number] Parmjit Kirk Self - patient is the insured Medical (General) History Medical History History ICD Code covid-19 Chicken pox Surgical History Surgery Date(Month/Year)
== END 2025-01-28 17:05 | disposition home or self-care (01) ==
LOC: HO.HMCFM 09:59
PROVIDERS: PCP Family Medicine; Visit Provider Family Medicine
DX: E78.00 Pure hypercholesterolemia, unspecified (principal); E78.6 Lipoprotein deficiency; R73.01 Impaired fasting glucose; R74.8 Abnormal levels of other serum enzymes; Z12.5 Encounter for screening for malignant neoplasm of prostate